=== PATIENT | male | born 1975 | race Hispanic/Latino ===

== ENCOUNTER 2025-07-06 15:33 | Emergency (ER) | payer OTHER ==
[~2025-07-06] VITALS: Ht 177.8 cm; Wt 83.9 kg
[2025-07-06 16:33] LABS: IMMATURE GRANULOCYTE ABSOLUTE 0.04 K/uL (0-1); NUCLEATED RED BLOOD CELLS 0.0 % (0.0-0.19); PLATELET COUNT (AUTO) 146 K/uL (130-400); RED BLOOD CELL COUNT(AUTO) 4.93 MIL/uL (4.50-6.20); RED CELL DISTRIBUTION WIDTH 12.2 % (11.0-15.5); WHITE BLOOD COUNT (AUTO) 7.9 K/uL (4.8-10.8)
[2025-07-06 16:46] LABS: CREATININE 1.0 mg/dL (0.5-1.3); GLOMERULAR FILTR. RATE CALC 92.0 mL/min (>90); GLUCOSE,RANDOM 114.0 mg/dL (70-105); SODIUM SERUM 145.0 mmol/L (136-145); UREA NITROGEN, BLOOD 14.0 mg/dL (7-18)
--- NOTE | 2025-07-06 16:49 | HMCIMG ---
EXAM: CR Chest, 1 View. CLINICAL HISTORY: cp COMPARISON: None provided. FINDINGS: LUNGS: The lungs show no infiltrate or other acute finding. PLEURAL SPACES: No pleural effusion or pneumothorax. MEDIASTINUM: The cardiomediastinal silhouette is within normal limits. BONES: No acute osseous abnormality. IMPRESSION: No acute cardiopulmonary pathology is evident. /[place]
[2025-07-06 17:05] LABS: CREATINE KINASE, TOTAL 56.0 U/L (21-232)
[2025-07-06 17:44] VITALS: BP 116/88; PULSE 81; RESP 16; TEMP 98.3; O2SAT 98
--- NOTE | 2025-07-06 18:02 | ERN ---
General Chief Complaint: Chest Pain Stated Complaint: CHEST PRESSURE Time Seen by MD: 15:41 Time Seen by Midlevel: 15:41 Source: patient History of Present Illness Initial Comments 50-year-old male with no significant past medical history presenting to the emergency department for evaluation of palpitations. Patient states he was at work when he got a notification from his wash that his heart rate was over 100 beats per minute. He believes he may be in a flutter and decided to report to the ER for further evaluation. Allergies: Coded Allergies: No Known Drug Allergies (Unverified Allergy, Unknown, 07/06/25) Past Medical History Past Medical History: Hypothyroid Past Surgical History: Cholecystectomy, Other Surgical History Other: PARTIAL THYROIDECTOMY. ROS Dictation CONSTITUTIONAL: Negative except for HPI HEAD/FACE: Negative except for HPI EENT: Negative except for HPI RESPIRATORY: Negative except for HPI GASTROINTESTINAL/ABDOMINAL: Negative except for HPI GENITOURINARY: Negative except for HPI MUSCULOSKELETAL: Negative except for HPI INTEGUMENTARY: Negative except for HPI NEUROLOGICAL/PSYCH: Negative except for HPI HEMATOLOGIC/LYMPHATIC: Negative except for HPI All Systems Negative, Except as noted above. 13 point review of systems assessed and all negative except for above. Physical Exam Physical Exam Dictation Vital Signs reviewed General Appearance: Alert, oriented x 3, no acute distress, well developed, nourished. Head and Face: non-traumatic. Eyes: PERRL, pink conjunctivas, eyelid no trauma, anterior chamber with arcus senilis. Ears: Pinnas intact and no signs of trauma or erythema ear canals clear and no discharge TM no erythema Nose: No discharge, no bleeding. Oropharynx: Mouth normal, tongue pink, pharynx clear,no erythema, tonsils no exudates, no abscesses noted, mucous membrane moist Neck: Supple, non-tender, no thyromegaly, no masses, no JVD, no bruits Breast:Deferred Chest:No tenderness, no crepitus, no paradoxical movement, no retractions Lungs:Clear, well-ventilated, symmetric, no rales, no wheezing, no rhonchi, no stridor, good breath sounds bilaterally Heart: Regular rate, regular rhythm, no murmur, no gallops Vascular: no peripheral edema, Abdomen: Soft, positive bowel sounds, nondistended, no guarding, nontender, no rebound, no masses no hepatomegaly, no splenomegaly, no Padilla's sign, no hernias. Rectal: Deferred Genital: Deferred Neurological: Normal speech, motor function intact, sensory function intact Musculoskeletal: Neck nontender, full range of motion, back nontender, full range of motion, Extremities: nontender, full range of motion Skin: Color pink, dry, no turgor, no rash, no lacerations, no abrasions, no contusions. Lymphatic: Deferred Results Laboratory and Microbiology Lab and Micro Result Laboratory Tests Test 07/06/25 16:27 White Blood Count 7.9 K/uL (4.8-10.8) Red Blood Count 4.93 MIL/uL (4.50-6.20) Hemoglobin 15.5 g/dL (14.0-18.0) Hematocrit 45.0 % (42-54) Mean Corpuscular Volume 91.3 fL (79-99) Mean Corpuscular Hemoglobin 31.4 pg (27.0-33.0) Mean Corpuscular Hemoglobin Concent 34.4 g/dL (32.0-36.0) Red Cell Distribution Width 12.2 % (11.0-15.5) Platelet Count 146 K/uL (130-400) Mean Platelet Volume 11.3 fL (7.5-10.5) H Immature Granulocyte % (Auto) 0.5 % (0-1) Neutrophils (%) (Auto) 74.4 % (40.0-77.0) Lymphocytes (%) (Auto) 17.0 % (21.0-51.0) L Monocytes (%) (Auto) 7.1 % (3.0-13.0) Eosinophils (%) (Auto) 0.6 % (0.0-8.0) Basophils (%) (Auto) 0.4 % (0.0-5.0) Neutrophils # (Auto) 5.9 K/uL (1.8-7.7) Lymphocytes # (Auto) 1.3 K/uL (1.0-4.8) Monocytes # (Auto) 0.6 K/uL (0.1-1.0) Eosinophils # (Auto) 0.05 K/uL (0.00-0.70) Basophils # (Auto) 0.03 K/uL (0.00-0.20) Absolute Immature Granulocyte (auto 0.04 K/uL (0-1) Nucleated Red Blood Cells 0.0 % (0.0-0.19) Sodium Level 145 mmol/L (136-145) Potassium Level 3.9 mmol/L (3.5-5.1) Chloride Level 105 mmol/L (101-111) Carbon Dioxide Level 29 mmol/L (21-32) Blood Urea Nitrogen 14 mg/dL (7-18) Creatinine 1.0 mg/dL (0.5-1.3) Glomerular Filtration Rate Calc 92 mL/min (>90) Random Glucose 114 mg/dL (70-105) H Total Calcium 8.6 mg/dL (8.5-10.1) Magnesium Level 2.20 mg/dL (1.80-2.40) Total Creatine Kinase 56 U/L (21-232) Troponin I High Sensitivity 4 ng/L (4-75) B-Type Natriuretic Peptide 6 pg/mL (0-100) Labs Reviewed?: Yes MDM MDM: Differential diagnosis: Palpitations, dehydration, electrolyte abnormality, cardiac arrhythmia There are no social concerns with this patient. Prescription drug management Prescriptions will include: None Medical management and examination interpretation discussions were had by id wi th other qualified healthcare professionals as indicated for the patient's care. ED Course Orders Procedure Category Date Status Time 12 Lead Ekg Tracing- EKG 07/06/25 Logged Technical 15:42 Cbc With Differential LAB 07/06/25 Complete 15:42 Basic Metabolic Panel LAB 07/06/25 Complete 15:42 Creatine Kinase, Total LAB 07/06/25 Complete 15:42 B-Type Natriuretic LAB 07/06/25 Complete Peptide 15:42 Troponin I High LAB 07/06/25 Complete Sensitivity 15:42 Chest 1vw RAD 07/06/25 Resulted 15:42 Magnesium LAB 07/06/25 Complete 15:42 Vital Signs Date Time Temp Pulse Resp B/P (MAP) Pulse Ox O2 Delivery O2 Flow Rate FiO2 07/06/25 17:44 98.2 81 16 116/88 98 Room Air* 0 21 07/06/25 15:38 102 18 127/91 98 DX & DISP Disposition: Discharge Departure Impression: Primary Impression: Palpitations Condition: Stable Additional Instructions: Your blood work today is unremarkable. Your cardiac enzymes are negative. Your chest x-ray is normal. Your EKG shows no acute ischemic changes. Please follow up with the director of special services. You may need a Holter monitor. Referrals: SELF,REFERRAL (PCP) Time of Disposition: 18:01 I have reviewed the case, and I agree with, Diagnosis and Plan I performed the substantive portion of the visit. I have reviewed and personally made and approve the management plan that is documented in the note by myself or the CR. I acknowledge for responsibility for the patient's management plan. JEANNE FAULKNER PAC Jul 06, 2025 18:02
--- NOTE | 2025-07-07 06:20 | EKG ---
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
== END 2025-07-06 18:31 | disposition home or self-care (01) ==
LOC: EDH 15:33
DX: R00.2 Palpitations (principal); E03.9 Hypothyroidism, unspecified; Z90.49 Acquired absence of other specified parts of digestive tract; Z98.890 Other specified postprocedural states
CPT/HCPCS: 36415; 71045; 80048; 82550; 83735; 83880; 84484; 85025; 93005; 99285